=== PATIENT | female | born 1995 | race Hispanic/Latino ===

== ENCOUNTER 2017-09-17 03:33 | Emergency (ER) | payer OTHER, SELFPAY ==
[2017-09-17 04:09] LABS: Bilirubin Negative (Negative); Blood, Urine Negative (Negative); Glucose, Urine (Dipstick) Negative (Negative); Ketone, Urine Negative (Negative); Nitrite Negative (Negative); Protein, Urine (Dipstick) Negative (Neg-Trace); Urobilinogen 0.2 mg/dL (0.2-1.0)
[2017-09-17 04:12] LABS: Bacteria/HPF None Seen HPF (None Seen); Hyaline Casts/LPF 4-6 HYALINE CAST LPF (0-3 Hyaline); WBC/HPF 0-3 HPF (0-3)
[2017-09-17 04:12] LABS: #Basophils 0.1 thou/uL (0.0-0.2); #Eosinphils 0.2 thou/uL (0.0-0.7); #Monocytes 0.6 thou/uL (0.11-0.59); %Basophils 0.6 % (0.0-1.0); %Eosinophils 1.6 % (0.0-10.0); %Lymphocytes 30.5 % (28.0-48.0); %Monocytes 6.3 % (0.0-4.0); Hematocrit 41.9 % (36.0-47.0); Mean Platelet Volume 7.2 fL (7.4-10.4); Red Blood Cell (RBC) Count 4.53 mill/uL (4.00-5.20); White Blood Cell (WBC) Count 9.9 thou/uL (4.8-10.8)
[2017-09-17 04:33] LABS: ALT (SGPT) 13 U/L (8-55); AST (SGOT) 16 U/L (5-34); Alkaline Phosphatase 71 U/L (40-150); Anion Gap 11 mmol/L (10-20); BUN (Urea Nitrogen) 8 mg/dL (7.0-18.7); Bilirubin, Total 0.2 mg/dL (0.2-1.2); Calc. Creatinine Clearance 0 mL/min (70-130); Calcium 9.3 mg/dL (7.8-10.44); Carbon Dioxide 24 mmol/L (22-29); Chloride 106 mmol/L (98-107); Estimated GFR-MDRD Greater than 90; Lipase 40 U/L (8-78); Protein, Total 7.3 g/dL (6.0-8.3)
[2017-09-17] MEDS ORDERED: Milk Of Magnesia 30 ML UDCUP ONE (06:07)
[2017-09-17] MEDS ORDERED: Lidocaine Viscous Sol 2% 15 ml UD Cup ONE (06:07)
--- NOTE | 2017-09-17 11:15 | CT ---
PRELIMINARY REPORT/[facility]/EMERGENCY AFTER HOURS PROCEDURE: EXAM: CT Abdomen and Pelvis With Intravenous Contrast CLINICAL HISTORY: The patient is a 22 years female; Pain and signs and symptoms; Nausea and vomiting; Abdominal pain; Patient HX: F20 presents to ed for abdominal pain. Pt reports she went to the doctor the other day f or abdominal pain and was told there was something wrong with her pancreas. Pt reports she was presc ribed medication which she has been taking 3 times a day. Pt reports pain worsening today and report s the pain radiates to her back. Pt reports feeling bloated. Pt reports nausea. Pt denies recently b poly drinking or using any other drugs. Pt reports lmp on 08/22. No previous exams TECHNIQUE: Axial computed tomography images of the abdomen and pelvis with intravenous contrast. Coronal reformatted images were created and reviewed. CONTRAST: 85 mL of isovue 370 administered intravenously. COMPARISON: No relevant prior studies available. FINDINGS: Lower thorax: No acute findings. ABDOMEN: Liver: Unremarkable. No mass. Gallbladder and bile ducts: No calcified stones. No ductal dilation. Pancreas: Pancreas enhances normally with no inflammatory changes appreciated. The duct is normal in caliber. No lesions. Spleen: Unremarkable. No splenomegaly. Adrenals: Unremarkable. No mass. Kidneys and ureters: The kidneys enhance normally. No hydroureteronephrosis or lesions. Stomach and bowel: Scattered gas and stool within the colon. No evidence of bowel obstruction or inf lammatory change. Appendix: No findings to suggest acute appendicitis. PELVIS: Bladder: Empty. Reproductive: There is an oval left adnexal hypodense fluid collection measuring 2.8 x 4.9 x 4.5 cm (image 62 series 2). Unremarkable appearance of the uterus and right adnexa. ABDOMEN and PELVIS: Intraperitoneal space: No free fluid or air. Left adnexal fluid collection as described above. Bones/joints: Unremarkable. Soft tissues: Unremarkable. Vasculature: Unremarkable. No abdominal aortic aneurysm. Lymph nodes: Unremarkable. No enlarged lymph nodes. IMPRESSION: 1. 2.8 x 4.9 x 4.5 cm simple left adnexal fluid collection consistent with functional ovarian cyst. This can be followed up with pelvic ultrasound if clinically warranted. No acute inflammatory change s are appreciated. 2. No CT evidence of pancreatitis or other acute abdominal finding. Thank you for allowing us to participate in the care of your patient. Dictated and Authenticated by: Carlos A Araujo MD 09/17/2017 7:12 AM Central Time ([place] \T\ [place]) FINAL REPORT CT ABDOMEN AND PELVIS WITH CONTRAST: HISTORY: Periumbilical pain. Nausea. Vomiting. FINDINGS/IMPRESSION: Findings and impression are concordant with the preliminary report. In addition, there is moderate circumferential wall thickening which is abnormal at the 2nd and 3rd portion of the duodenum. The l eft renal vein inserts in the left common iliac vein. The duodenal wall thickening may represent a component of duodenitis and ulcer disease. Nonemergent GI consultation is recommended. POS: SHERIF
[2017-09-17] MEDS ORDERED: ISOVUE-370 76%-LOCM 1 ML ONE (16:05)
== END 2017-09-17 08:04 | disposition home or self-care (01) ==
LOC: ERS 03:33
DX: R10.33 Periumbilical pain (principal)
CPT/HCPCS: 36415; 74177; 80053; 81003; 81015; 81025; 83690; 85025; 96372

== ENCOUNTER 2017-10-28 15:55 | Emergency (ER) | payer SELFPAY ==
[2017-10-28] MEDS ORDERED: HYDROcodone/Acetaminophen 5/325 mg Tablet ONE (16:34)
[2017-10-28] MEDS ORDERED: Adacel (T-DAP) 0.5 ML VIAL ONE (16:34)
== END 2017-10-28 16:54 | disposition home or self-care (01) ==
LOC: ERS 15:55
DX: S81.852A Open bite, left lower leg, initial encounter (principal); W54.0XXA Bitten by dog, initial encounter
CPT/HCPCS: 90471; 90715

== ENCOUNTER 2018-04-21 20:37 | Emergency (ER) | payer OTHER, SELFPAY ==
[2018-04-21 20:54] LABS: Bilirubin Negative (Negative); Blood, Urine Large (Negative); Clarity CLEAR (Clear); Glucose, Urine (Dipstick) Negative (Negative); Leukocyte Negative (Negative); Nitrite Negative (Negative); Protein, Urine (Dipstick) Negative (Neg-Trace); Specific Gravity, Urine 1.026 (1.002-1.036)
[2018-04-21 20:55] LABS: Bacteria/HPF None Seen HPF (None Seen); Hyaline Casts/LPF 0-3 HYALINE CAST LPF (0-3 Hyaline); Pathc Cast-AUWi Flag 0.14 (0-2.49); Squamous Epithelial 0-3 HPF (0-3)
[2018-04-21 21:04] LABS: #Basophils 0.1 thou/uL (0.0-0.2); #Eosinphils 0.2 thou/uL (0.0-0.7); #Lymphocytes 3.6 thou/uL (1.20-3.40); #Monocytes 0.6 thou/uL (0.11-0.59); #Neutrophils 3.1 thou/uL (1.40-6.50); %Eosinophils 2.6 % (0.0-10.0); %Lymphocytes 47.5 % (28.0-48.0); %Monocytes 7.8 % (0.0-4.0); %Neutrophils 41.1 % (31.0-61.0); Hemoglobin 12.3 g/dL (12.0-16.0); Mean Corpuscular HGB CONC 33.3 g/dL (32.0-36.0); Mean Corpuscular Hemoglobin 29.7 pg (25.0-35.0); Mean Corpuscular Volume 89.2 fl (77.0-87.0); Mean Platelet Volume 7.1 fL (7.4-10.4); Platelet Count 366 thou/uL (130-400); RBC Distribution Width 12.6 % (11.5-14.5); Red Blood Cell (RBC) Count 4.14 mill/uL (4.00-5.20); White Blood Cell (WBC) Count 7.6 thou/uL (4.8-10.8)
[2018-04-21 21:23] LABS: Pregu Control Background? CLEAR/WHITE (CLR/WHITE); Pregu Control Bar Appear? YES (CONTROL BAR); Specific Gravity 1.026 (1.002-1.036)
[2018-04-21 21:24] LABS: Pregnancy Test - Urine (BHCG) Negative (Negative)
[2018-04-21 21:25] LABS: ALT (SGPT) 16 U/L (8-55); AST (SGOT) 17 U/L (5-34); Albumin 4.4 g/dL (3.5-5.0); Alkaline Phosphatase 71 U/L (40-150); Anion Gap 10 mmol/L (10-20); BUN (Urea Nitrogen) 11 mg/dL (7.0-18.7); Bilirubin, Total 0.4 mg/dL (0.2-1.2); Calc. Creatinine Clearance 0 mL/min (70-130); Calcium 9.4 mg/dL (7.8-10.44); Carbon Dioxide 25 mmol/L (22-29); Chloride 108 mmol/L (98-107); Estimated GFR-MDRD Greater than 90; Globulin 2.8 g/dL (2.4-3.5); Glucose 89 mg/dL (70-105); Protein, Total 7.2 g/dL (6.0-8.3); Sodium 139 mmol/L (136-145)
[2018-04-21 21:31] LABS: INR-International Normal Ratio 1.1; PTT 37.1 SEC (22.9-36.1); Prothrombin Time 14.6 SEC (12.0-14.7)
--- NOTE | 2018-04-21 22:14 | ULT ---
TRANSVAGINAL AND PELVIC ULTRASOUND: CLINICAL INDICATIONS: Vaginal bleeding with low abdomen/pelvic pain. hCG reported as negative. TECHNIQUE: De-scale and Doppler color-flow imaging with spectral analysis performed. FINDINGS: No focal uterine abnormality is identified. Doppler evaluation reveals flow to each ovary. There is a dominant cyst at the left adnexa, measuring greater than 4 cm, demonstrated. Free pelvic fluid is seen, nonspecific. IMPRESSION: 1. Dominant cystic structure of the left adnexa. Given size, recommend six-week follow-up pelvic ul trasound to confirm resolution. 2. Nonspecific free pelvic fluid. Correlate clinically. POS: SJ
[2018-04-24 02:07] LABS: Chlamydia by PCR Not Detected (NotDetected); GC by PCR Not Detected (NotDetected)
== END 2018-04-21 22:42 | disposition home or self-care (01) ==
LOC: ERS 20:37
DX: N93.9 Abnormal uterine and vaginal bleeding, unspecified (principal); N83.202 Unspecified ovarian cyst, left side
CPT/HCPCS: 36415; 76856; 80053; 81003; 81015; 81025; 84443; 85025; 85610; 85730; 87480; 87491; 87510; 87591; 87660

== ENCOUNTER 2018-06-21 10:36 | Emergency (ER) | payer SELFPAY ==
[2018-06-21] MEDS ORDERED: Ondansetron HCl/PF 4 MG/2 ML Vial ONE (11:09)
[2018-06-21 11:23] LABS: #Basophils 0.1 thou/uL (0.0-0.2); #Lymphocytes 1.6 thou/uL (1.20-3.40); #Monocytes 0.3 thou/uL (0.11-0.59); #Neutrophils 5.1 thou/uL (1.40-6.50); %Basophils 0.8 % (0.0-1.0); %Eosinophils 0.3 % (0.0-10.0); %Lymphocytes 22.3 % (28.0-48.0); %Monocytes 4.3 % (0.0-4.0); %Neutrophils 72.3 % (31.0-61.0); Hemoglobin 12.9 g/dL (12.0-16.0); Mean Corpuscular HGB CONC 33.8 g/dL (32.0-36.0); Mean Corpuscular Hemoglobin 30.1 pg (25.0-35.0); Mean Platelet Volume 6.9 fL (7.4-10.4); Platelet Count 331 thou/uL (130-400); RBC Distribution Width 12.1 % (11.5-14.5); Red Blood Cell (RBC) Count 4.31 mill/uL (4.00-5.20); White Blood Cell (WBC) Count 7.1 thou/uL (4.8-10.8)
[2018-06-21 11:41] LABS: BHCG - Serum Negative (NEGATIVE); Pregs Control Background? CLEAR/WHITE (CLR/WHITE); Pregs Control Bar Appear? YES (CONTROL BAR)
--- NOTE | 2018-06-21 11:43 | ULT ---
ULTRASOUND LOWER EXTREMITY BILATERAL: Date: 06/21/18 HISTORY: Pain after starting contraceptive. Swelling. TECHNIQUE: Real-time De scale and color Doppler with spectral analysis of the bilateral lower extremity venous system was performed. The common femoral, femoral, proximal portions of greater saphenous and deep f emoral veins, as well as the popliteal and posterior tibial veins were interrogated. FINDINGS: Normal flow, augmentation, and compression. IMPRESSION: No deep venous thrombosis. POS: SHERIF
[2018-06-21 11:47] LABS: ALT (SGPT) 12 U/L (8-55); AST (SGOT) 14 U/L (5-34); Albumin 4.5 g/dL (3.5-5.0); Alkaline Phosphatase 75 U/L (40-150); Anion Gap 12 mmol/L (10-20); BUN (Urea Nitrogen) 11 mg/dL (7.0-18.7); Bilirubin, Total 0.6 mg/dL (0.2-1.2); Calc. Creatinine Clearance 0 mL/min (70-130); Carbon Dioxide 21 mmol/L (22-29); Chloride 109 mmol/L (98-107); Estimated GFR-MDRD Greater than 90; Globulin 2.8 g/dL (2.4-3.5); Glucose 97 mg/dL (70-105); Potassium 3.8 mmol/L (3.5-5.1); Protein, Total 7.3 g/dL (6.0-8.3); Sodium 138 mmol/L (136-145)
[2018-06-21 12:27] LABS: Bilirubin Negative (Negative); Blood, Urine Moderate (Negative); Clarity CLOUDY (Clear); Glucose, Urine (Dipstick) Negative (Negative); Leukocyte Negative (Negative); Nitrite Negative (Negative); Protein, Urine (Dipstick) Trace mg/dL (Neg-Trace); Specific Gravity, Urine 1.024 (1.002-1.036); pH, Urine 7.5 (5.0-9.0)
[2018-06-21 12:30] LABS: Bacteria/HPF 2+ HPF (None Seen); Hyaline Casts/LPF 0-3 HYALINE CAST LPF (0-3 Hyaline); Pathc Cast-AUWi Flag 0.43 (0-2.49); WBC/HPF 0-3 HPF (0-3)
== END 2018-06-21 13:19 | disposition home or self-care (01) ==
LOC: ERS 10:36
DX: R11.2 Nausea with vomiting, unspecified (principal); T38.5X5A Adverse effect of other estrogens and progestogens, initial encounter
CPT/HCPCS: 36415; 80053; 81003; 81015; 84703; 85025; 93970; 96361; 96374; J2405

== ENCOUNTER 2018-07-18 12:24 | Emergency (ER) | payer SELFPAY ==
[2018-07-18] MEDS ORDERED: Acetaminophen 500 MG TAB ONE (13:17)
--- NOTE | 2018-07-18 14:19 | CT ---
CT OF THE FACE WITHOUT CONTRAST: Comparison: None. History: Left sided jaw and facial pain after hitting it against a car door on Tuesday. Technique: Multiple contiguous axial images were obtained in a CT of the face without contrast. FINDINGS: The temporomandibular joints are excluded from this examination. Lucency is seen in the subcondylar r egion of the left mandible. This may represent a minimally displaced mandible fracture. No other frac tures of the mandible are appreciated. No other facial fractures are seen. A new cyst is seen in the right maxillary sinus. The other paranasal sinuses are well aerated. The globes and retrobulbar soft tissues are unremarkable. IMPRESSION: Nondisplaced fracture of the left subcondylar mandible. POS: SHERIF
== END 2018-07-18 15:10 | disposition home or self-care (01) ==
LOC: ERS 12:24
DX: S02.609A Fracture of mandible, unspecified, initial encounter for closed fracture (principal); W22.8XXA Striking against or struck by other objects, initial encounter
CPT/HCPCS: 70486

== ENCOUNTER 2019-02-24 21:46 | Emergency (ER) | payer SELFPAY ==
[2019-02-24 22:09] LABS: Bilirubin Negative (Negative); Blood, Urine Negative (Negative); Clarity CLEAR (Clear); Glucose, Urine (Dipstick) Negative (Negative); Leukocyte Negative (Negative); Nitrite Negative (Negative); Protein, Urine (Dipstick) Negative (Neg-Trace); Specific Gravity, Urine 1.008 (1.002-1.036); Urobilinogen 0.2 mg/dL (0.2-1.0)
[2019-02-24 22:13] LABS: #Basophils 0.1 thou/uL (0.0-0.2); #Eosinphils 0.1 thou/uL (0.0-0.7); #Lymphocytes 2.3 thou/uL (1.20-3.40); #Monocytes 0.6 thou/uL (0.11-0.59); #Neutrophils 5.8 thou/uL (1.40-6.50); %Eosinophils 1.4 % (0.0-10.0); %Monocytes 6.4 % (0.0-10.0); %Neutrophils 65.2 % (42.0-75.0); Hemoglobin 13.2 g/dL (12.0-16.0); Mean Corpuscular HGB CONC 33.2 g/dL (32.0-36.0); Mean Corpuscular Hemoglobin 29.9 pg (27.0-31.0); Mean Corpuscular Volume 90.2 fL (78.0-98.0); Mean Platelet Volume 7.4 fL (7.4-10.4); Platelet Count 372 thou/uL (130-400); RBC Distribution Width 12.1 % (11.5-14.5); Red Blood Cell (RBC) Count 4.43 mill/uL (4.20-5.40); White Blood Cell (WBC) Count 8.9 thou/uL (4.8-10.8)
[2019-02-24 22:16] LABS: Pregu Control Background? CLEAR/WHITE (CLR/WHITE); Pregu Control Bar Appear? YES (CONTROL BAR); Specific Gravity 1.008 (1.002-1.036)
[2019-02-24 22:18] LABS: Pregnancy Test - Urine (BHCG) POSITIVE (Negative)
--- NOTE | 2019-02-24 23:35 | ULT ---
PELVIC ULTRASOUND 02/24/19 Endovaginal ultrasound of pelvis performed. INDICATIONS: Pelvic pain. Positive test. FINDINGS: There is a gestational sac seen within the endometrial cavity. A yolk sac is identified. The po le is not identified. Gestational sac size indicates a 5 week, 4 day gestational age. Maternal ovaries are identified and appear unremarkable. Color doppler with spectral analysis demonst rates blood flow to both ovaries. Small amount of free cul-de-sac fluid. IMPRESSION: Evidence of an intrauterine gestation. Gestational sac is seen with a yolk sac. A pole is not i dentified at this time. Recommend continued followup with serial HCG levels and followup ultrasounds as indicated. POS: SHERIF
== END 2019-02-25 00:55 | disposition home or self-care (01) ==
LOC: ERS 21:46
DX: O99.89 Other specified diseases and conditions complicating pregnancy, childbirth and the puerperium (principal); R10.30 Lower abdominal pain, unspecified; Z3A.01 Less than 8 weeks gestation of pregnancy
CPT/HCPCS: 36415; 76856; 81003; 81025; 84702; 85025

== ENCOUNTER 2019-02-27 14:27 | Emergency (ER) | payer SELFPAY ==
[2019-02-27] MEDS ORDERED: Ondansetron ODT 4 MG TAB ONE (14:47)
== END 2019-02-27 15:14 | disposition home or self-care (01) ==
LOC: ERS 14:27
DX: O99.611 Diseases of the digestive system complicating pregnancy, first trimester (principal); K22.6 Gastro-esophageal laceration-hemorrhage syndrome; Z3A.01 Less than 8 weeks gestation of pregnancy
CPT/HCPCS: 99283; Q0162

== ENCOUNTER 2019-03-02 23:48 | Emergency (ER) | payer SELFPAY ==
[2019-03-03] MEDS ORDERED: Acetaminophen 325 MG TAB ONE (01:54)
== END 2019-03-03 02:03 | disposition home or self-care (01) ==
LOC: ERS 23:48
DX: O99.89 Other specified diseases and conditions complicating pregnancy, childbirth and the puerperium (principal); R10.30 Lower abdominal pain, unspecified; Z3A.01 Less than 8 weeks gestation of pregnancy
CPT/HCPCS: 36415; 84702; 99284

== ENCOUNTER 2019-03-09 09:02 | Emergency (ER) | payer OTHER, SELFPAY ==
[2019-03-09 09:29] LABS: Bilirubin Negative (Negative); Blood, Urine Negative (Negative); Clarity #SL (Clear); Glucose, Urine (Dipstick) Negative (Negative); Leukocyte Negative (Negative); Nitrite Negative (Negative); Protein, Urine (Dipstick) 30 mg/dL (Neg-Trace); Specific Gravity, Urine 1.026 (1.002-1.036)
[2019-03-09 09:33] LABS: Bacteria/HPF 3+ HPF (None Seen)
[2019-03-09 09:35] LABS: Hyaline Casts/LPF 0-3 HYALINE CAST LPF (0-3 Hyaline); Manual Microscopic Reviewed? No Path Casts Seen; Renal Epithelial None Seen HPF (0-3); Transitional Epithelial NONE SEEN HPF (0-3)
[2019-03-09] MEDS ORDERED: Ondansetron PF 4 MG/2 ML Vial ONE (09:38)
[2019-03-09 09:46] LABS: #Basophils 0.1 thou/uL (0.0-0.2); #Eosinphils 0.1 thou/uL (0.0-0.7); #Lymphocytes 2.7 thou/uL (1.20-3.40); #Monocytes 0.8 thou/uL (0.11-0.59); #Neutrophils 7.8 thou/uL (1.40-6.50); %Basophils 0.6 % (0.0-1.0); %Lymphocytes 23.6 % (21.0-51.0); %Monocytes 6.7 % (0.0-10.0); %Neutrophils 68.1 % (42.0-75.0); Hemoglobin 12.8 g/dL (12.0-16.0); Mean Corpuscular HGB CONC 33.5 g/dL (32.0-36.0); Mean Corpuscular Hemoglobin 30.5 pg (27.0-31.0); Mean Platelet Volume 7.2 fL (7.4-10.4); Platelet Count 401 thou/uL (130-400); RBC Distribution Width 12.4 % (11.5-14.5); White Blood Cell (WBC) Count 11.5 thou/uL (4.8-10.8)
[2019-03-09 09:51] LABS: BHCG - Serum POSITIVE (NEGATIVE); Pregs Control Background? CLEAR/WHITE (CLR/WHITE); Pregs Control Bar Appear? YES (CONTROL BAR)
[2019-03-09 10:06] LABS: ALT (SGPT) 13 U/L (8-55); AST (SGOT) 14 U/L (5-34); Albumin 4.3 g/dL (3.5-5.0); Alkaline Phosphatase 56 U/L (40-150); Anion Gap 11 mmol/L (10-20); BUN (Urea Nitrogen) 6 mg/dL (7.0-18.7); Bilirubin, Total 0.5 mg/dL (0.2-1.2); Calc. Creatinine Clearance 0 mL/min (70-130); Calcium 9.5 mg/dL (7.8-10.44); Carbon Dioxide 22 mmol/L (22-29); Chloride 107 mmol/L (98-107); Estimated GFR-MDRD Greater than 90; Globulin 2.8 g/dL (2.4-3.5); Glucose 84 mg/dL (70-105); Lipase 21 U/L (8-78); Potassium 3.9 mmol/L (3.5-5.1); Protein, Total 7.1 g/dL (6.0-8.3); Sodium 136 mmol/L (136-145)
--- NOTE | 2019-03-09 12:17 | MRI ---
MRI ABDOMEN WITHOUT CONTRAST: Date: 03/09/19 HISTORY: female with abdominal pain, nausea and vomiting since the morning. Pain in the lower abdomen . TECHNIQUE: Multiplanar, multisequence MR images were obtained of the abdomen without contrast. FINDINGS: The appendix is not definitely identified. In the region of the cecum, there is a 4.9 cm area of high T2 signal which represents edema. This is nonspecific. A small amount of free fluid is seen in the p kasia and may be physiologic. There appears to be a small gestational sac within the uterus. There is a 2.5 cm focus of low T2 signal in the uterus which may represent a uterine fibroid. No marrow signal abnormality is present. No abdominal adenopathy is seen. IMPRESSION: 1. No definite acute appendicitis seen. There is possible high T2 signal in the cecum which could re present inflammatory change of the cecum versus a cecal mass. This could also be artifactual. 2. Possible uterine fibroid. POS: [facility]
== END 2019-03-09 12:30 | disposition home or self-care (01) ==
LOC: ERS 09:02
DX: R10.10 Upper abdominal pain, unspecified (principal)
CPT/HCPCS: 36415; 74181; 80053; 81003; 81015; 83690; 84703; 85025; 96361; 96374; J2405

== ENCOUNTER 2019-03-16 23:50 | Emergency (ER) | payer OTHER ==
[2019-03-17] MEDS ORDERED: Ondansetron PF 4 MG/2 ML Vial ONE (00:22)
[2019-03-17] MEDS ORDERED: Acetaminophen 500 MG TAB ONE (00:22)
[2019-03-17 00:35] LABS: #Basophils 0.1 thou/uL (0.0-0.2); #Eosinphils 0.1 thou/uL (0.0-0.7); #Lymphocytes 2.6 thou/uL (1.20-3.40); #Neutrophils 8.8 thou/uL (1.40-6.50); %Basophils 0.5 % (0.0-1.0); %Eosinophils 1.1 % (0.0-10.0); %Lymphocytes 20.5 % (21.0-51.0); %Monocytes 7.6 % (0.0-10.0); %Neutrophils 70.3 % (42.0-75.0); Hemoglobin 12.8 g/dL (12.0-16.0); Mean Corpuscular HGB CONC 33.6 g/dL (32.0-36.0); Mean Corpuscular Hemoglobin 30.3 pg (27.0-31.0); Mean Corpuscular Volume 90.1 fL (78.0-98.0); Mean Platelet Volume 6.7 fL (7.4-10.4); Platelet Count 392 thou/uL (130-400); RBC Distribution Width 12.2 % (11.5-14.5); Red Blood Cell (RBC) Count 4.21 mill/uL (4.20-5.40); White Blood Cell (WBC) Count 12.5 thou/uL (4.8-10.8)
[2019-03-17 00:59] LABS: Bilirubin Negative (Negative); Blood, Urine Negative (Negative); Clarity CLEAR (Clear); Glucose, Urine (Dipstick) 250 mg/dL (Negative); Leukocyte Negative (Negative); Nitrite Negative (Negative); Protein, Urine (Dipstick) Negative (Neg-Trace); Specific Gravity, Urine 1.013 (1.002-1.036); Urobilinogen 0.2 mg/dL (0.2-1.0); pH, Urine 6.5 (5.0-9.0)
[2019-03-17 00:59] LABS: ALT (SGPT) 16 U/L (8-55); AST (SGOT) 15 U/L (5-34); Albumin 4.2 g/dL (3.5-5.0); Alkaline Phosphatase 50 U/L (40-150); Anion Gap 14 mmol/L (10-20); BUN (Urea Nitrogen) 10 mg/dL (7.0-18.7); Bilirubin, Total 0.2 mg/dL (0.2-1.2); Calc. Creatinine Clearance 0 mL/min (70-130); Calcium 9.9 mg/dL (7.8-10.44); Carbon Dioxide 21 mmol/L (22-29); Chloride 106 mmol/L (98-107); Estimated GFR-MDRD Greater than 90; Globulin 2.9 g/dL (2.4-3.5); Glucose 84 mg/dL (70-105); Lipase 31 U/L (8-78); Potassium 3.6 mmol/L (3.5-5.1); Protein, Total 7.1 g/dL (6.0-8.3); Sodium 137 mmol/L (136-145)
--- NOTE | 2019-03-17 07:53 | ULT ---
Preliminary Radiology Report EXAM: US , Transvaginal and US Duplex Artery and Vein, Ovaries, Complete EXAM DATE/TIME: 03/17/2019 12:46 AM CLINICAL HISTORY: 23 years old, female; complicated by abdominal or pelvic pain; Lower; First trimester; Gestational age or lmp: 8wks; TECHNIQUE: Imaging protocol: Real-time transvaginal obstetrical ultrasound of the maternal pelvis and a first trimester with image documentation. Transvaginal imaging was used for better evaluation of the fetus and adnexa. Real-time duplex ultrasound scan of the arterial and venous flow of the ovaries with B-mode, color Doppler flow and spectral waveform analysis, Complete Duplex. COMPARISON: No relevant prior studies available. FINDINGS: Transvaginal obstetrical ultrasound was performed. Duplex ultrasound scan with color Doppler flow and spectral waveform analysis was also performed for evaluation of pelvic and ovarian blood flow and torsion. Gestation: Single, living intrauterine gestation. heart rate 155 beats per minute. CRL 1.79cm, 8w2d. Yolk sac visualized. Placenta/amniotic fluid: Small subchorionic hemorrhage. Uterus/cervix: Retroverted. No acute findings. No myometrial mass. Right adnexa: No acute findings. No mass. Normal duplex of the ovary. No evidence of torsion. Left adnexa: No acute findings. No mass. Normal duplex of the ovary. No evidence of torsion. Free fluid: No free fluid. IMPRESSION: Single viable intrauterine . Small subchorionic hemorrhage. Thank you for allowing us to participate in the care of your patient. Dictated and Authenticated by: Phil Ley MD FINAL REPORT: EMERGENT AFTER HOURS PELVIC ULTRASOUND: HISTORY: complicated by abdominal or pelvic pain. First trimester . IMPRESSION: 1. There is evidence of an intrauterine gestation with the gestational sac containing both a p ole and a yolk sac. Gestational age by measurement of the crown-rump length is 8 weeks and 2 days with an estimated date of delivery of 10/25/2019. 2. Small subchorionic hemorrhage, measuring 8 mm in maximal dimensions. Continued followup is recom mended. 3. heart tones are documented with a heart rate of 169 beats per minute. 4. Normal appearing bilateral ovaries. Color-flow and Doppler evaluation with spectral analysis of t he bilateral ovaries demonstrates arterial flow in each ovary. 5. The uterus is retroverted. 6. Findings are in agreement with the preliminary report by Jake. Code QA Transcribed Date/Time: 03/19/2019 8:15 AM
== END 2019-03-17 01:38 | disposition home or self-care (01) ==
LOC: ERS 23:50
DX: O99.89 Other specified diseases and conditions complicating pregnancy, childbirth and the puerperium (principal); R10.32 Left lower quadrant pain
CPT/HCPCS: 36415; 76856; 80053; 81003; 83690; 84702; 85025; 96361; 96374; J2405

== ENCOUNTER 2019-03-21 10:06 | Emergency (ER) | payer OTHER ==
[2019-03-21 10:46] LABS: #Eosinphils 0.1 thou/uL (0.0-0.7); #Lymphocytes 2.4 thou/uL (1.20-3.40); #Monocytes 0.7 thou/uL (0.11-0.59); #Neutrophils 8.4 thou/uL (1.40-6.50); %Basophils 0.3 % (0.0-1.0); %Eosinophils 0.7 % (0.0-10.0); %Lymphocytes 20.5 % (21.0-51.0); %Neutrophils 72.5 % (42.0-75.0); Mean Corpuscular HGB CONC 33.8 g/dL (32.0-36.0); Mean Corpuscular Hemoglobin 30.4 pg (27.0-31.0); Mean Corpuscular Volume 89.9 fL (78.0-98.0); Mean Platelet Volume 6.7 fL (7.4-10.4); Platelet Count 399 thou/uL (130-400); RBC Distribution Width 12.1 % (11.5-14.5); Red Blood Cell (RBC) Count 4.28 mill/uL (4.20-5.40); White Blood Cell (WBC) Count 11.6 thou/uL (4.8-10.8)
[2019-03-21 11:08] LABS: ALT (SGPT) 12 U/L (8-55); AST (SGOT) 14 U/L (5-34); Albumin 4.3 g/dL (3.5-5.0); Alkaline Phosphatase 57 U/L (40-150); Anion Gap 11 mmol/L (10-20); BUN (Urea Nitrogen) 6 mg/dL (7.0-18.7); Bilirubin, Total 0.4 mg/dL (0.2-1.2); Calc. Creatinine Clearance 0 mL/min (70-130); Calcium 9.7 mg/dL (7.8-10.44); Carbon Dioxide 25 mmol/L (22-29); Chloride 105 mmol/L (98-107); Estimated GFR-MDRD Greater than 90; Glucose 85 mg/dL (70-105); Potassium 3.8 mmol/L (3.5-5.1); Protein, Total 7.3 g/dL (6.0-8.3); Sodium 137 mmol/L (136-145)
[2019-03-21 11:11] LABS: Bilirubin Negative (Negative); Blood, Urine Negative (Negative); Clarity CLOUDY (Clear); Glucose, Urine (Dipstick) Negative (Negative); Leukocyte Negative (Negative); Nitrite Negative (Negative); Protein, Urine (Dipstick) Trace mg/dL (Neg-Trace); Specific Gravity, Urine 1.017 (1.002-1.036); Urobilinogen 0.2 mg/dL (0.2-1.0); pH, Urine 7.5 (5.0-9.0)
--- NOTE | 2019-03-21 11:20 | ULT ---
Exam: Pelvic ultrasound HISTORY: Patient with intrauterine gestation. Patient has had vomiting with dark emesis since 2:00 AM this mo rning. COMPARISON: 03/17/2019 TECHNIQUE: Multiple grayscale and color Doppler images were obtained in a transabdominal and transvag inal pelvic ultrasound. Spectral analysis of the Doppler waveforms of the ovaries were performed. FINDINGS: CERVIX: Grossly within normal limits where imaged. UTERUS: The uterus is retroverted. Again noted is a fluid collection within the endometrial canal whi ch contains a pole and a yolk sac. Cardiac Doppler does demonstrate heart tones with a heart rate of 163 bpm. The crown-rump length measures 2.23 cm compatible with gestational age o f 8 weeks and 6 days. There is an irregular collection seen in a subchorionic location lower uterine segment also visualize d on prior exam but measures slightly larger in size on today's examination measuring 2.6 cm x 0.6 cm x 1.7 cm with prior measurement of 2.4 cm x 1.1 cm x 0.7 cm. This is again suggestive of a subchor ionic hemorrhage. No free fluid is present. RIGHT OVARY: Normal flow, without focal mass. LEFT OVARY: Normal flow, without focal mass. IMPRESSION: 1. Small subchorionic hemorrhage measuring slightly larger in size compared to prior study. This may be related to technical factors. 2. Single intrauterine gestation with heart tones documented. Gestational age by measurement of the crown-rump length is 8 weeks and 6 days.
[2019-03-21] MEDS ORDERED: Ondansetron ODT 4 MG TAB ONE (12:06)
== END 2019-03-21 12:20 | disposition home or self-care (01) ==
LOC: ERS 10:06
DX: O99.89 Other specified diseases and conditions complicating pregnancy, childbirth and the puerperium (principal); R10.9 Unspecified abdominal pain; O21.9 Vomiting of pregnancy, unspecified; Z3A.08 8 weeks gestation of pregnancy
CPT/HCPCS: 36415; 76856; 80053; 81003; 84702; 85025; 99284; Q0162

== ENCOUNTER 2019-04-20 20:21 | Emergency (ER) | payer OTHER ==
[2019-04-20 20:53] LABS: Bilirubin Negative (Negative); Blood, Urine Negative (Negative); Clarity CLOUDY (Clear); Glucose, Urine (Dipstick) 100 mg/dL (Negative); Leukocyte Negative (Negative); Nitrite Negative (Negative); Protein, Urine (Dipstick) Negative (Neg-Trace); Specific Gravity, Urine 1.027 (1.002-1.036); Urobilinogen 0.2 mg/dL (0.2-1.0)
[2019-04-20 20:56] LABS: #Eosinphils 0.2 thou/uL (0.0-0.7); #Lymphocytes 2.7 thou/uL (1.20-3.40); #Monocytes 0.9 thou/uL (0.11-0.59); %Basophils 0.4 % (0.0-1.0); %Eosinophils 1.4 % (0.0-10.0); %Lymphocytes 22.8 % (21.0-51.0); %Monocytes 7.9 % (0.0-10.0); %Neutrophils 67.5 % (42.0-75.0); Hemoglobin 12.8 g/dL (12.0-16.0); Mean Corpuscular HGB CONC 34.4 g/dL (32.0-36.0); Mean Corpuscular Hemoglobin 30.8 pg (27.0-31.0); Mean Corpuscular Volume 89.4 fL (78.0-98.0); Mean Platelet Volume 7.1 fL (7.4-10.4); Platelet Count 330 thou/uL (130-400); RBC Distribution Width 12.1 % (11.5-14.5); Red Blood Cell (RBC) Count 4.15 mill/uL (4.20-5.40); White Blood Cell (WBC) Count 11.8 thou/uL (4.8-10.8)
[2019-04-20 21:18] LABS: ALT (SGPT) 11 U/L (8-55); AST (SGOT) 12 U/L (5-34); Albumin 3.9 g/dL (3.5-5.0); Alkaline Phosphatase 57 U/L (40-150); Anion Gap 15 mmol/L (10-20); BUN (Urea Nitrogen) 9 mg/dL (7.0-18.7); Bilirubin, Total 0.2 mg/dL (0.2-1.2); Calc. Creatinine Clearance 0 mL/min (70-130); Calcium 9.6 mg/dL (7.8-10.44); Carbon Dioxide 19 mmol/L (22-29); Chloride 107 mmol/L (98-107); Estimated GFR-MDRD Greater than 90; Glucose 90 mg/dL (70-105); Lipase 43 U/L (8-78); Potassium 3.7 mmol/L (3.5-5.1); Protein, Total 6.9 g/dL (6.0-8.3); Sodium 137 mmol/L (136-145)
--- NOTE | 2019-04-20 22:50 | MRI ---
Contrast-enhanced images abdomen pelvis. HISTORY: Abdominal pain. Contrast CT images of the abdomen pelvis obtained. IV contrast was given. The lung bases are unremarkable. There is massive dilatation of the small bowel which also appears to be enhancing. This is concerning for bowel obstruction or enteritis. Small pockets of gas seen outside of the small bowel likely representing a compressed and minimally gas-filled areas of descending colon. The enteric colon is ma rkedly decompressed and no significant stool seen. No significant amount of ascites seen. IMPRESSION: Massively distended loops of small bowel with enhancement concerning for bowel obstructio n.
[2019-04-20] MEDS ORDERED: Morphine 4 MG/ML VIAL ONE (23:21)
== END 2019-04-21 00:31 | disposition home or self-care (01) ==
LOC: ERS 20:21
DX: O99.89 Other specified diseases and conditions complicating pregnancy, childbirth and the puerperium (principal); R10.31 Right lower quadrant pain; Z3A.13 13 weeks gestation of pregnancy
CPT/HCPCS: 36415; 74181; 80053; 81003; 83690; 85025; 96372; J2270

== ENCOUNTER 2019-04-29 00:16 | Emergency (ER) | payer OTHER ==
[2019-04-29 01:03] LABS: Bilirubin Negative (Negative); Blood, Urine Negative (Negative); Clarity CLOUDY (Clear); Glucose, Urine (Dipstick) Negative (Negative); Leukocyte Negative (Negative); Nitrite Negative (Negative); Protein, Urine (Dipstick) Negative (Neg-Trace); Specific Gravity, Urine 1.009 (1.002-1.036); Urobilinogen 0.2 mg/dL (0.2-1.0); pH, Urine 6.5 (5.0-9.0)
[2019-04-29 01:05] LABS: Pregnancy Test - Urine (BHCG) POSITIVE (Negative); Pregu Control Background? CLEAR/WHITE (CLR/WHITE); Pregu Control Bar Appear? YES (CONTROL BAR); Specific Gravity 1.009 (1.002-1.036)
[2019-04-29] MEDS ORDERED: Ondansetron ODT 4 MG TAB ONE (02:28)
== END 2019-04-29 02:33 | disposition home or self-care (01) ==
LOC: ERS 00:16
DX: O20.9 Hemorrhage in early pregnancy, unspecified (principal); Z3A.14 14 weeks gestation of pregnancy
CPT/HCPCS: 36415; 81003; 81025; 86900; 86901; Q0162

== ENCOUNTER 2019-06-06 12:40 | Emergency (ER) | payer OTHER ==
[2019-06-06 14:29] LABS: Bilirubin Negative (Negative); Blood, Urine Negative (Negative); Glucose, Urine (Dipstick) Negative (Negative); Leukocyte Negative (Negative); Nitrite Negative (Negative); Protein, Urine (Dipstick) 30 mg/dL (Neg-Trace); Urobilinogen 0.2 mg/dL (Less than 2)
[2019-06-06 14:31] LABS: Clarity Clear (Clear)
[2019-06-06 14:44] LABS: Bacteria/HPF 3+ HPF (None Seen); Calcium Oxalate Crystals 1+ HPF (None Seen); RBC/HPF None Seen HPF (0-3); WBC/HPF 0-3 HPF (0-3)
[2019-06-06 15:50] LABS: #Eosinphils 0.2 thou/uL (0.0-0.7); #Lymphocytes 2.8 thou/uL (1.20-3.40); #Monocytes 0.7 thou/uL (0.11-0.59); #Neutrophils 7.4 thou/uL (1.40-6.50); %Basophils 0.2 % (0.0-1.0); %Eosinophils 1.4 % (0.0-10.0); %Lymphocytes 25.2 % (21.0-51.0); %Monocytes 6.5 % (0.0-10.0); %Neutrophils 66.8 % (42.0-75.0); Hemoglobin 11.8 g/dL (12.0-16.0); Mean Corpuscular HGB CONC 33.6 g/dL (32.0-36.0); Mean Corpuscular Hemoglobin 29.9 pg (27.0-31.0); Mean Platelet Volume 6.9 fL (7.4-10.4); Platelet Count 353 thou/uL (130-400); Red Blood Cell (RBC) Count 3.95 mill/uL (4.20-5.40); White Blood Cell (WBC) Count 11.1 thou/uL (4.8-10.8)
[2019-06-06 16:11] LABS: ALT (SGPT) 24 U/L (8-55); AST (SGOT) 18 U/L (5-34); Albumin 3.7 g/dL (3.5-5.0); Alkaline Phosphatase 66 U/L (40-150); Anion Gap 9 mmol/L (10-20); BUN (Urea Nitrogen) 5 mg/dL (7.0-18.7); Bilirubin, Total 0.2 mg/dL (0.2-1.2); Calc. Creatinine Clearance 0 mL/min (70-130); Calcium 9.1 mg/dL (7.8-10.44); Carbon Dioxide 25 mmol/L (22-29); Chloride 106 mmol/L (98-107); Estimated GFR-MDRD Greater than 90; Globulin 3.1 g/dL (2.4-3.5); Glucose 75 mg/dL (70-105); Protein, Total 6.8 g/dL (6.0-8.3); Sodium 136 mmol/L (136-145)
--- NOTE | 2019-06-06 16:13 | ULT ---
Bilateral renal ultrasound CLINICAL INDICATION: Intermittent abdominal pain COMPARISON: None FINDINGS: Right kidney: No solid mass, or hydronephrosis. Left kidney: No solid mass, or hydronephrosis. Urinary bladder: Normal IMPRESSION: Unremarkable exam.
[2019-06-06] MEDS ORDERED: Acetaminophen 500 MG TAB ONE (16:14)
== END 2019-06-06 16:48 | disposition home or self-care (01) ==
LOC: ERS 12:40
DX: O99.89 Other specified diseases and conditions complicating pregnancy, childbirth and the puerperium (principal); R10.9 Unspecified abdominal pain; Z3A.19 19 weeks gestation of pregnancy
CPT/HCPCS: 36415; 76770; 80053; 81003; 81015; 85025

== ENCOUNTER 2019-06-07 07:29 | Day surgery (SDC) | payer OTHER ==
[2019-06-07 08:31] VITALS: BMI 28.9
[2019-06-07 08:58] LABS: #Eosinphils 0.1 thou/uL (0.0-0.7); #Lymphocytes 2.5 thou/uL (1.20-3.40); #Monocytes 0.6 thou/uL (0.11-0.59); #Neutrophils 5.8 thou/uL (1.40-6.50); %Basophils 0.2 % (0.0-1.0); %Eosinophils 1.5 % (0.0-10.0); %Lymphocytes 27.2 % (21.0-51.0); %Neutrophils 64.2 % (42.0-75.0); Hemoglobin 11.5 g/dL (12.0-16.0); Mean Corpuscular HGB CONC 32.1 g/dL (32.0-36.0); Mean Corpuscular Hemoglobin 28.7 pg (27.0-31.0); Mean Corpuscular Volume 89.5 fL (78.0-98.0); Platelet Count 345 thou/uL (130-400); RBC Distribution Width 12.1 % (11.5-14.5)
[2019-06-07 09:20] LABS: ALT (SGPT) 23 U/L (8-55); AST (SGOT) 20 U/L (5-34); Albumin 3.5 g/dL (3.5-5.0); Alkaline Phosphatase 63 U/L (40-150); Anion Gap 8 mmol/L (10-20); BUN (Urea Nitrogen) 4 mg/dL (7.0-18.7); Bilirubin, Total 0.2 mg/dL (0.2-1.2); Calc. Creatinine Clearance 186 mL/min (70-130); Calcium 9.1 mg/dL (7.8-10.44); Carbon Dioxide 26 mmol/L (22-29); Chloride 107 mmol/L (98-107); Estimated GFR-MDRD Greater than 90; Globulin 2.9 g/dL (2.4-3.5); Glucose 75 mg/dL (70-105); Potassium 4.5 mmol/L (3.5-5.1); Protein, Total 6.4 g/dL (6.0-8.3); Sodium 136 mmol/L (136-145)
[2019-06-07 09:51] LABS: Bacteria/HPF None Seen HPF (None Seen); Bilirubin Negative (Negative); Blood, Urine Negative (Negative); Clarity Clear (Clear); Glucose, Urine (Dipstick) Normal (Negative); Leukocyte Negative Leu/uL (Negative); Nitrite Negative (Negative); Protein, Urine (Dipstick) Negative (Neg-Trace); RBC/HPF 0-3 HPF (0-3); Urobilinogen Normal mg/dL (Less than 2); WBC/HPF 0-3 HPF (0-3)
--- NOTE | 2019-06-07 11:38 | SS ---
DATE OF ADMISSION: 06/07/2019 DATE OF DISCHARGE: 06/07/2019 REGULAR PHYSICIAN: Keith Willoughby MD EVALUATING PHYSICIAN: Rehan Blas MD CHIEF COMPLAINT: Left-sided flank pain with radiation to the front. HISTORY OF PRESENT ILLNESS: Ms. Osuna is a 23-year-old, G1, P0 with an estimated date of confinement of 10/27/2019, who comes up to Labor and Delivery after having appeared in the ER. The patient has had multiple visits over the last several months. She reports now that she is having left flank pain that has began to radiate to the front and now spreads diffusely across her upper abdomen. She denies vaginal bleeding, ruptured membranes, or associated fever, chills, nausea, or vomiting over the last 24 hours. She does report some intermittent urinary frequency. Her last bowel movement was 24 hours ago. Of note is the fact that she had a renal ultrasound yesterday, that was nonfocal. Her care has been with Dr. Willoughby. She is scheduled to have her 20-week ultrasound next week. PAST MEDICAL HISTORY: None. PAST SURGICAL HISTORY: Includes repair of Arnold-Chiari malformation and ACL repair of her knee. CURRENT MEDICATIONS: 1. vitamins. 2. Zofran p.r.n. ALLERGIES: NO KNOWN ALLERGIES. SOCIAL HISTORY: She denies tobacco, alcohol, or drug use. FAMILY HISTORY: Unremarkable. REVIEW OF SYSTEMS: Denies nausea, vomiting, fever, chills, ruptured membranes, or vaginal bleeding. PHYSICAL EXAMINATION: VITAL SIGNS: Blood pressure is 111/73, heart rate 71, respirations 18, and temperature 98.9. GENERAL: She is pleasant and in no acute distress. ABDOMEN: Soft and nontender. There is no guarding or rebound. PELVIC: Deferred. heart tones are obtained by Doppler. LABORATORY DATA: White count 9.0, hemoglobin and hematocrit of 11.5 and 35.8. Chemistry shows sodium of 136, potassium of 4.5, BUN of 4, creatinine of 0.54, glucose is 75. Total bilirubin 0.2, AST and ALT are 20 and 23 respectively, alkaline phosphatase is 6.3. Urinalysis shows a specific gravity 1.021 with negative protein, negative ketones, negative blood, negative nitrites, negative leukocyte esterase. Microscopic shows 0 to 3 rbc's, 0 to 3 wbc's, and 4 to 6 squamous epithelial cells. No bacteria are seen. ASSESSMENT: 1. A 19-week intrauterine . 2. Abdominal pain with nonfocal workup here. 3. Multiple visits to the ER. PLAN: At this time, I have reassured the patient that her laboratories are normal and that her exam is nonfocal. I did offer to do an upper abdominal ultrasound for her, but she does not wish to stay for that. The nature of constipation and musculoskeletal pain in was discussed with her in detail. She was urged to keep herself well hydrated and eat small frequent meals and uses stool softener while she is . She voiced understanding of this and was satisfied. She has an appointment next week for her 20-week ultrasound and will see Dr. Willoughby within 2 weeks. Job ID: [id number]
== END 2019-06-07 10:10 | disposition home health service (06) ==
LOC: ERS 07:29 → L&D/OP 07:29 → EDSTATUS 08:12 → L&D/OP 10:10
PROVIDERS: ATTEND Family Medicine
DX: O99.89 Other specified diseases and conditions complicating pregnancy, childbirth and the puerperium (principal); R10.9 Unspecified abdominal pain; Z3A.19 19 weeks gestation of pregnancy
CPT/HCPCS: 36415; 51701; 80053; 81003; 85025; 99283

== ENCOUNTER 2019-06-12 13:25 | Outpatient (CLI) | payer OTHER ==
--- NOTE | 2019-06-12 15:06 | ULT ---
ULTRASOUND OBLIQUE COMPLETE STANDARD: HISTORY: Anatomy scan. COMPARISON: None. FINDINGS: Single viable intrauterine with average ultrasound age 22 weeks 2 days, estimated date of d [place]10/14/2019. Estimated weight is 1 pound 1 ounce, 90th percentile. BIOMETRY: Biparietal diameter 5.34 cm, 22 weeks 2 days Head circumference 20.19 cm, 22 weeks 3 days Abdominal circumference 16.78 cm, 21 weeks 6 days Femur length 3.85 cm, 22 weeks 3 days AMNIOTIC FLUID INDEX: 11.79 cm. heart rate documented at 147 b.p.m. ANATOMY: Head, cerebellum, cisterna magna, lateral ventricles, 4-chamber heart, stomach, kidneys, cord inserti on, bladder, cervical, thoracic, lumbar, and sacral spine, lips/nose, upper extremities, lower extrem ity, and 3-vessel cord are all normal. No placenta previa. The presentation is cephalic and the placenta is posterior. IMPRESSION: Normal single viable intrauterine . POS: HOME
== END 2019-06-12 13:26 | disposition home or self-care (01) ==
LOC: BICULT 13:25
PROVIDERS: ATTEND Family Medicine
DX: Z34.02 Encounter for supervision of normal first pregnancy, second trimester (principal); Z3A.22 22 weeks gestation of pregnancy
CPT/HCPCS: 76805

== ENCOUNTER 2019-06-15 14:33 | Outpatient (CLI) | payer OTHER ==
--- NOTE | 2019-06-15 17:41 | MRI ---
BRAIN MRI WITHOUT CONTRAST: 06/15/19 COMPARISON: None. HISTORY: Chiari I malformation, headaches. TECHNIQUE: Multiplanar and multisequence MRI imaging of the brain obtained without contrast. FINDINGS: The diffusion weighted imaging demonstrates no evidence for acute infarction. Polypoid mucosal thicke caridad noted within the alveolar recess of the right maxillary sinus. Arterial flow voids at the axial level of the skull base appear patent on the axial T2 weighted imaging. Bilateral vertebral arteries and basilar artery are relatively hypoplastic. No midline shift or mass effect. No ventricular enlargement. No abnormal white matter signal intensit y. The dural venous sinuses are not optimally assessed on this examination without IV contrast. The dura l venous sinuses appear normal on the T2 weighted imaging and on the FLAIR imaging. On the T1 weighte d imaging, there is asymmetric increased signal intensity within the transverse sinus on the left and within the inferior posterior aspect of the superior sagittal sinus. This could be related to artifa ct on the T1 weighted images as this is normal on T2 and FLAIR imaging. Cerebellar tonsils extend below the level of the foramen magnum by greater than 5 mm, consistent with the provided history of a Chiari I malformation. Cerebellar tonsils extend probably 1.2 cm below the level of the foramen magnum. There is no mass effect at the level of the foramen magnum however. IMPRESSION: No acute findings. Area of abnormal signal intensity within the dural venous sinuses on axial images does not persist on coronal and sagittal imaging. If there is high clinical concern for dural venous sinus thrombosis, an MR venogram or CT angiogram of the head would be required for full assessment. POS: SHERIF
== END 2019-06-15 14:34 | disposition home or self-care (01) ==
LOC: BICMRI 14:33
PROVIDERS: ATTEND Psychiatry & Neurology Neurology
DX: G93.5 Compression of brain (principal)
CPT/HCPCS: 70551

== ENCOUNTER 2019-07-19 02:42 | Day surgery (SDC) | payer OTHER ==
[2019-07-19 03:21] LABS: Amnisure Internal Control QC ACCEPTABLE (ACCEPTABLE)
[2019-07-19 03:22] LABS: Amnisure Test No Membranes Rupture (No Rupture)
[2019-07-19 03:37] VITALS: BP 115/72; TEMP 98.1; BMI 30.5
[2019-07-19] MEDS ORDERED: hydrALAZINE 20 MG/ML VIAL SLOW IVP PRN (03:37)
[2019-07-19] MEDS ORDERED: Lactated Ringer's 1,000 ML IV SCH ×2 (03:45)
[2019-07-19] MEDS: Terbutaline Sulfate 1 MG/ML VIAL SC SCH ×2 (04:21→04:51)
--- NOTE | 2019-07-19 04:25 | PRG ---
DATE OF SERVICE: 07/19/2019 PRIMARY OB: Keith Willoughby MD CHIEF COMPLAINT: Abdominal pains and leakage of fluid. HISTORY OF PRESENT ILLNESS: The patient is a 24-year-old, G1, P0 female with an intrauterine at 25 weeks and 5 days, who is presenting for abdominal pain and leakage of fluid. She reports that she began leaking fluid in the morning. Her underwear has been staying wet and has been leaking down her legs. She reports that this has been continuous through the day and about 6:00 p.m. started having contractions that has intensified bringing her to Labor and Delivery at this point. She denies any previous complications with this . She does report intercourse yesterday. She denies fever, cough, infection, fall, headache, chest pain, shortness of breath, nausea, vomiting, diarrhea, constipation, hip problems, knee problems, muscle weakness, or any new rashes. She denies vaginal bleeding. She denies urinary urgency or frequency. PAST MEDICAL HISTORY: Significant for Chiari malformation. PAST SURGICAL HISTORY: Significant for repair of Arnold-Chiari malformation, and ACL. ALLERGIES: NO KNOWN DRUG ALLERGIES. MEDICATIONS: vitamins. SOCIAL HISTORY: Denies drug, alcohol, or tobacco use. OB LABS: Unavailable at time of dictation. REVIEW OF SYSTEMS: Per HPI. PHYSICAL EXAMINATION: VITAL SIGNS: Blood pressure 115/72, heart rate of 84, respiratory rate 18, saturating 99% on room air, temperature 98.1. GENERAL: She appears to be anxious, in some distress and tearful. She is otherwise alert, oriented, cooperative, and pleasant to interact with. HEAD: Normocephalic and atraumatic. LUNGS: Clear to auscultation bilaterally. HEART: Has regular rate and rhythm. ABDOMEN: Soft. She does have some tenderness in her fundal and suprapubic regions. EXTREMITIES: Nontender, nonedematous. : Vulva is without masses, lesions, or erythema. Vagina is moist with discharge; however, there is no evidence of pulling with Valsalva or pressure. Cervix is visibly closed. AmniSure, VPIII, GC, chlamydia and GBS were all collected. On digital exam, cervix is closed, feels thick and firm. heart tones show a baseline in the 130s with moderate long-term variability, appropriate for 25-week fetus. No contractions visible on the monitor. Bedside ultrasound demonstrates normal-appearing fluid levels and very transiently the cervix became in view, was measured approximately 3.5 cm. Shortly thereafter, head gotten away and the shadowing made it impossible for me to re-examine cervix and measure more than once. AmniSure test is back and negative. ASSESSMENT AND PLAN: The patient is a 24-year-old, G1, P0 female with an intrauterine at 25 weeks and 5 days presenting for leaking of fluid and abdominal pain. The patient has no evidence of labor at this time. We do have urinalysis, VPIII, GC, chlamydia, and GBS all pending. The AmniSure test is negative that coupled with normal amount of fluid visible and no pulling suggests no leakage of fluid or rupture of membranes. The patient has an IV and is getting bolused with LR while we are awaiting lab results. Addendum: ultrasound: CL 3.8cm CATHY 13cm UA: neg nitrite, LE, WBC,Bacter,RBC,Ketones VP3, GC/CH pending On reevaluation 1.5hrs later pt reporting that most of her discomfort has resolved. We have discussed that there is no evidence of rupture of membranes or labor at this time. UA shows no evidence of infection. VP3 results are not available at this time. PT encouraged to call back later this morning for results. GC/Ct results will be available in a couple days. PT comfortable going home. Fetus reassuring for gestational age. Job ID: [id number] [facility]
[2019-07-19 04:55] LABS: Bacteria/HPF None Seen HPF (None Seen); Bilirubin Negative (Negative); Blood, Urine Negative (Negative); Clarity Clear (Clear); Glucose, Urine (Dipstick) Normal (Negative); Leukocyte Negative Leu/uL (Negative); Nitrite Negative (Negative); Protein, Urine (Dipstick) Negative (Neg-Trace); RBC/HPF 0-3 HPF (0-3); Squamous Epithelial 0-3 HPF (0-3); Urobilinogen Normal mg/dL (Less than 2); WBC/HPF 0-3 HPF (0-3)
--- NOTE | 2019-07-19 08:42 | ULT ---
OB ULTRASOUND, LIMITED: INDICATION: Evaluation of weight and cervical length. FINDINGS: There is a live intrauterine gestation with cardiac activity documented at 144 b.p.m. Fetus is in a vertex lie. The cervix, as demonstrated, is measured at 3.9 cm in length. By ultrasound, wiliam mated age is 28 weeks placing the estimated date of delivery by ultrasound at 10/11/2019. Estimated weight is 1076 gm placing the fetus at the 96th percentile by Hadlock criteria. CATHY measures 1 3.2. IMPRESSION: Single live intrauterine gestation, as detailed above. POS: [facility]K
== END 2019-07-19 05:35 | disposition home or self-care (01) ==
LOC: L&D/OP 02:42
PROVIDERS: ATTEND Family Medicine
DX: O99.89 Other specified diseases and conditions complicating pregnancy, childbirth and the puerperium (principal); R10.9 Unspecified abdominal pain; N89.8 Other specified noninflammatory disorders of vagina; Z3A.25 25 weeks gestation of pregnancy
CPT/HCPCS: 76815; 81001; 84112; 87081; 87480; 87491; 87510; 87591; 87660; 96360; 96361; 96372; 99285; J3105

== ENCOUNTER 2024-09-04 06:12 | Emergency (ER) | payer OTHER, SELFPAY ==
[2024-09-04] MEDS ORDERED: Acetaminophen 500 MG TAB ONE (06:49)
[2024-09-04] MEDS ORDERED: Ketorolac Tromethamine 30 MG (1 mL) VIAL ONE (06:49)
== END 2024-09-04 07:09 | disposition home or self-care (01) ==
LOC: ERS 06:12
DX: S39.012A Strain of muscle, fascia and tendon of lower back, initial encounter (principal); X50.9XXA Other and unspecified overexertion or strenuous movements or postures, initial encounter
CPT/HCPCS: 96372; 99282; J1885

== ENCOUNTER 2024-09-24 08:31 | Emergency (ER) | payer SELFPAY ==
[2024-09-24] MEDS ORDERED: Ketorolac Tromethamine 30 MG (1 mL) VIAL ONE (08:59)
[2024-09-24] MEDS ORDERED: Ondansetron PF 4 MG/2 ML Vial ONE (08:59)
[2024-09-24 09:25] LABS: #Basophils 0.04 10x3/uL (0.0-0.2); %Basophils 0.4 % (0.0-1.0); %Eosinophils 1.6 % (0.0-10.0); %Lymphocytes 30.2 % (21.0-51.0); %Monocytes 5.5 % (0.0-10.0); %Neutrophils 62.2 % (42.0-75.0); Hemoglobin 12.5 g/dL (12.0-16.0); Mean Corpuscular HGB CONC 32.9 g/dL (32.0-36.0); Mean Corpuscular Hemoglobin 26.8 pg (27.0-31.0); Mean Corpuscular Volume 81.4 fL (78.0-98.0); Mean Platelet Volume 9.8 fL (7.4-10.4); Platelet Count 393 10x3/uL (130-400); RBC Distribution Width 15.4 % (11.5-14.5); Red Blood Cell (RBC) Count 4.67 mill/uL (4.20-5.40)
[2024-09-24] MEDS ORDERED: Morphine 4 MG/ML VIAL ONE (09:28)
[2024-09-24 09:34] LABS: Bacteria/HPF 1+ HPF (None Seen); Bilirubin Negative (Negative); Blood, Urine 3+ (Negative); CAUTI Indications for Culture Dysuria,urgency,freq; Clarity Turbid (Clear); Glucose, Urine (Dipstick) Normal (Negative); Ketone, Urine Trace mg/dL (Negative); Leukocyte 500 Leu/uL (Negative); Nitrite Negative (Negative); Protein, Urine (Dipstick) 200 mg/dL (Neg-Trace); RBC/HPF Greater than 50 HPF (0-3); Specific Gravity, Urine 1.002 (1.002-1.036); Squamous Epithelial None Seen HPF (0-3); Urobilinogen Normal mg/dL (Less than 2); WBC/HPF Greater than 50 HPF (0-3); pH, Urine 6.5 (5.0-9.0)
[2024-09-24 09:35] LABS: Pregnancy Test - Urine (BHCG) Negative (Negative)
[2024-09-24 09:36] LABS: Pregu Control Background? CLEAR/WHITE (CLR/WHITE); Pregu Control Bar Appear? YES (CONTROL BAR); Specific Gravity 1.002 (1.002-1.036); Urine Culture Reflex Yes Yes
[2024-09-24 09:40] LABS: ALT (SGPT) 13 U/L (8-55); AST (SGOT) 20 U/L (5-34); Albumin 4.3 g/dL (3.5-5.0); Alkaline Phosphatase 74 U/L (40-110); Anion Gap 11 mmol/L (10-20); BUN (Urea Nitrogen) 7 mg/dL (7.0-18.7); Bilirubin, Total 0.6 mg/dL (0.2-1.2); Calc. Creatinine Clearance 0 mL/min (70-130); Calcium 9.7 mg/dL (7.8-10.44); Carbon Dioxide 23 mmol/L (22-29); Chloride 106 mmol/L (98-107); Estimated GFR 121; Globulin 3.7 g/dL (2.4-3.5); Glucose 87 mg/dL (70-105); Potassium 3.3 mmol/L (3.5-5.1); Sodium 137 mmol/L (136-145)
[2024-09-24] MEDS ORDERED: Phenazopyridine HCl 100 MG TAB ONE (10:27)
[2024-09-25 05:14] LABS: Chlamydia by PCR, Vaginal Swab Not Detected (NotDetected); GC by PCR, Vaginal Swab Not Detected (NotDetected)
== END 2024-09-24 13:35 | disposition home or self-care (01) ==
LOC: ERS 08:31
DX: N39.0 Urinary tract infection, site not specified (principal); N83.202 Unspecified ovarian cyst, left side
CPT/HCPCS: 74176; 76856; 80053; 81001; 81025; 85025; 87077; 87086; 87186; 87480; 87491; 87510; 87591; 87660; 96365; 96375; J1885; J2272; J2405

== ENCOUNTER 2025-10-28 07:27 | Emergency (ER) | payer SELFPAY ==
[2025-10-28 08:17] LABS: #Basophils 0.07 10x3/uL (0.0-0.2); #Eosinophils 0.12 10x3/uL (0.0-0.7); #Monocytes 0.43 10x3/uL (0.11-0.59); #Neutrophils 4.39 10x3/uL (1.40-6.50); %Basophils 0.9 % (0.0-1.0); %Eosinophils 1.6 % (0.0-10.0); %Lymphocytes 32.4 % (21.0-51.0); %Monocytes 5.8 % (0.0-10.0); %Neutrophils 59.2 % (42.0-75.0); Hematocrit 39.3 % (36.0-47.0); Hemoglobin 12.2 g/dL (12.0-16.0); Mean Corpuscular Hemoglobin 23.8 pg (27.0-31.0); Mean Corpuscular Volume 76.6 fL (78.0-98.0); Platelet Count 515 10x3/uL (130-400); Red Blood Cell (RBC) Count 5.13 mill/uL (4.20-5.40); White Blood Cell (WBC) Count 7.43 10x3/uL (4.8-10.8)
[2025-10-28 08:24] LABS: Pregnancy Test - Urine (BHCG) Negative (Negative); Pregu Control Background? CLEAR/WHITE (CLR/WHITE); Pregu Control Bar Appear? YES (CONTROL BAR)
[2025-10-28 08:32] LABS: ALT (SGPT) 11 U/L (Less than 34); AST (SGOT) 29 U/L (11-34); Albumin 4.6 g/dL (3.1-4.5); Alkaline Phosphatase 63 U/L (40-110); Anion Gap 15 mmol/L (10-20); BUN (Urea Nitrogen) 10 mg/dL (7.0-18.7); Bilirubin, Total 0.4 mg/dL (0.3-1.2); Calc. Creatinine Clearance 0 mL/min (70-130); Calcium 9.3 mg/dL (7.8-10.44); Carbon Dioxide 21 mmol/L (22-29); Chloride 108 mmol/L (98-107); Globulin 3.6 g/dL (2.4-3.5); Glucose 82 mg/dL (70-105); Potassium 4.5 mmol/L (3.5-5.1); Sodium 139 mmol/L (136-145)
[2025-10-28 08:32] LABS: CAUTI Indications for Culture Dysuria,urgency,freq; Glucose, Urine (Dipstick) Normal (Negative); Leukocyte 250 Leu/uL (Negative); Protein, Urine (Dipstick) Negative (Neg-Trace); Specific Gravity, Urine 1.014 (1.002-1.036); WBC/HPF Greater than 50 HPF (0-3)
[2025-10-28 08:38] LABS: Bacteria/HPF Rare-Few HPF (None Seen)
[2025-10-28 08:44] LABS: Urine Culture Reflex Yes Yes
[2025-10-28] MEDS ORDERED: cefTRIAXone (ROCEPHIN) 2 GM VIAL ONE (10:30)
[2025-10-28] MEDS ORDERED: Iopamidol-370 76% 500 ML MDV (1 ML CHARGE) ONE (12:47)
== END 2025-10-28 11:09 | disposition home or self-care (01) ==
LOC: ERS 07:27
DX: S30.0XXA Contusion of lower back and pelvis, initial encounter (principal); N39.0 Urinary tract infection, site not specified; W18.30XA Fall on same level, unspecified, initial encounter
CPT/HCPCS: 74177; 80053; 81001; 81025; 85025; 87077; 87086; 87186; 94760; 96374; 96375; J0696; Q9967